=== PATIENT | female | born 1960 | race African-American/Black ===

== ENCOUNTER 2023-10-17 12:37 | Inpatient (IN) | payer OTHER ==
[~2023-10-17] VITALS: Ht 157.5 cm; Wt 48.2 kg
[~2023-10-17 12:37] MED LIST: MULT1CAP32 PO
[2023-10-17] MEDS ORDERED: IOHEXOL 350 MG/ML 100 ML VIAL ONE (13:13)
[2023-10-17] MEDS ORDERED: SODIUM CHLORIDE 0.9% 100 ML ONE (13:14)
[2023-10-17 13:23] LABS: BASOPHILS % (AUTO) 0.6 % (0.0-2.0); EOSINOPHILS % (AUTO) 0.8 % (1.0-6.0); HEMATOCRIT 33.2 % (36-46); HEMOGLOBIN 11.2 g/dL (12.0-16.0); LYMPHOCYTES # (AUTO) 1.6 K/uL (1.0-4.8); LYMPHOCYTES % (AUTO) 39.8 % (22.0-44.0); MEAN CORPUSCULAR HEMOGLOBIN 30.8 pg (26.0-34.0); MEAN CORPUSCULAR HGB CONC 33.8 G/dL (31.0-37.0); MEAN CORPUSCULAR VOLUME 91 fL (80-100); MONOCYTES # (AUTO) 0.3 K/uL (0.1-1.0); NEUTROPHILS % (AUTO) 50.8 % (40.0-70.0); PLATELET COUNT (AUTO) 224 K/uL (150-450); RED BLOOD CELL COUNT(AUTO) 3.65 MIL/uL (4.00-5.20); RED CELL DISTRIBUTION WIDTH 14.3 % (11.5-14.5)
[2023-10-17] MEDS ORDERED: ACETAMINOPHEN 325 MG TABLET PO PRN (13:30)
[2023-10-17] MEDS ORDERED: BISACODYL 10 MG RECTAL RECTAL SUPPOSITORY PR PRN (13:30)
[2023-10-17 13:40] LABS: ANION GAP 6 mmol/L (8-16); CALCIUM, TOTAL 9.4 mg/dL (8.8-10.5); CARBON DIOXIDE 31 mmol/L (22-29); CHLORIDE 104 mmol/L (98-107); CREATININE 0.97 mg/dL (0.60-1.30); GLOMERULAR FILTR. RATE CALC > 60 mL/min (>60); GLUCOSE,RANDOM 94 mg/dL (70-110); POTASSIUM 3.9 mmol/L (3.5-5.1); SODIUM SERUM 141 mmol/L (136-145); TROPONIN I-HIGH SENSITIVITY Less Than 4 ng/L (<51); UREA NITROGEN, BLOOD 21 mg/dL (7-18)
[2023-10-17 13:45] LABS: PROTHROMBIN TIME 10.9 SEC (9.4-11.6)
[2023-10-17 14:50] LABS: GLUCOMETER DEV NAME(LOC) ERT.5; GLUCOSE,POINT OF CARE 86 MG/DL (70-110)
[2023-10-17 14:52] LABS: ALANINE AMINOTRANSFERASE 23 U/L (12-78); ALKALINE PHOSPHATASE 79 U/L (46-116); ASPARTATE AMINOTRANSFERASE 24 U/L (15-37); BILIRUBIN,TOTAL 0.7 mg/dL (0.1-1.0); TOTAL PROTEIN, SERUM 7.8 g/dL (6.4-8.2)
[2023-10-17] MEDS: ASPIRIN 325 MG TABLET PO ONE ×2 (15:16→15:17)
[2023-10-17] MEDS: CLOPIDOGREL BISULFATE 300 MG TABLET PO ONE (15:17)
[2023-10-17 16:26] VITALS: BP 111/71; PULSE 62; RESP 16; TEMP 98.1
[2023-10-17 16:36] LABS: APPEARANCE,URINE CLEAR (CLEAR); BILIRUBIN,URINE NEGATIVE (NEGATIVE); COLOR,URINE LIGHT YELLOW (YELLOW); GLUCOSE, URINE (UA) NEGATIVE (NEGATIVE); KETONES,URINE NEGATIVE (NEGATIVE); LEUKOCYTE ESTERASE ,URINE NEGATIVE (NEGATIVE); NITRATE,URINE NEGATIVE (NEGATIVE); OCCULT BLOOD,URINE NEGATIVE (NEGATIVE); PH,URINE 7.5 (5.0-8.0); PH,URINE DRUG SCREEN 7.5 (5.0-8.0); PROTEIN,URINE TRACE mg/dL (NEGATIVE); UROBILINOGEN,URINE <=1.0 mg/dL (<=1.0)
[2023-10-17 16:42] LABS: SPECIFIC GRAVITIY, URINE > 1.050 (1.003-1.030)
[2023-10-17 16:45] LABS: ALCOHOL, URINE DRUG SCREEN NEGATIVE (NEGATIVE); AMPHET/METH SCREEN,URINE NEGATIVE (NEGATIVE); BARBITURATE SCREEN, URINE NEGATIVE (NEGATIVE); BENZODIAZEPINES SCREEN,URINE NEGATIVE (NEGATIVE); CANNABINOID SCREEN,URINE NEGATIVE (NEGATIVE); COCAINE SCREEN,URINE NEGATIVE (NEGATIVE); METHADONE SCREEN, URINE NEGATIVE (NEGATIVE); OPIATE SCREEN,URINE NEGATIVE (NEGATIVE); PHENCYCLIDINE SCREEN,URINE NEGATIVE (NEGATIVE)
[2023-10-17 16:56] LABS: BACTERIA,URINE None Seen /HPF (None Seen); RBC,URINE None Seen /HPF (0-2); WBC,URINE None Seen /HPF (0-5)
[2023-10-17 19:17] LABS: TROPONIN I-HIGH SENSITIVITY 4 ng/L (<51)
[2023-10-17 20:29] VITALS: BP 102/57; PULSE 71; RESP 18; TEMP 98.1
[2023-10-17] MEDS: CHLORHEXIDINE GLUCONATE 2% TOWELETTE [2'S/6'S] TP SCH (23:57)
[2023-10-17 23:58] VITALS: BP 104/61; PULSE 58; RESP 18; TEMP 97.7
[2023-10-18 01:23] LABS: TROPONIN I-HIGH SENSITIVITY 4 ng/L (<51)
[2023-10-18 04:26] VITALS: PULSE 100; RESP 18; TEMP 97.7
[2023-10-18 06:40] LABS: BASOPHILS % (AUTO) 0.6 % (0.0-2.0); EOSINOPHILS % (AUTO) 1.6 % (1.0-6.0); HEMOGLOBIN 10.8 g/dL (12.0-16.0); LYMPHOCYTES # (AUTO) 1.6 K/uL (1.0-4.8); LYMPHOCYTES % (AUTO) 42.6 % (22.0-44.0); MEAN CORPUSCULAR HEMOGLOBIN 30.7 pg (26.0-34.0); MEAN CORPUSCULAR HGB CONC 33.7 G/dL (31.0-37.0); MEAN CORPUSCULAR VOLUME 91 fL (80-100); MONOCYTES # (AUTO) 0.3 K/uL (0.1-1.0); MONOCYTES % (AUTO) 8.9 % (2.0-9.0); NEUTROPHILS # (AUTO) 1.8 K/uL (1.8-7.7); NEUTROPHILS % (AUTO) 46.3 % (40.0-70.0); PLATELET COUNT (AUTO) 209 K/uL (150-450); RED BLOOD CELL COUNT(AUTO) 3.51 MIL/uL (4.00-5.20); RED CELL DISTRIBUTION WIDTH 14.1 % (11.5-14.5); WHITE BLOOD COUNT (AUTO) 3.8 K/uL (4.5-11.0)
[2023-10-18 07:06] LABS: ANION GAP 7 mmol/L (8-16); CALCIUM, TOTAL 8.9 mg/dL (8.8-10.5); CARBON DIOXIDE 31 mmol/L (22-29); CHLORIDE 103 mmol/L (98-107); CREATININE 0.82 mg/dL (0.60-1.30); GLOMERULAR FILTR. RATE CALC > 60 mL/min (>60); GLUCOSE,RANDOM 91 mg/dL (70-110); POTASSIUM 3.8 mmol/L (3.5-5.1); SODIUM SERUM 141 mmol/L (136-145); UREA NITROGEN, BLOOD 14 mg/dL (7-18)
[2023-10-18 08:00] VITALS: BP 101/54; PULSE 75; RESP 16; TEMP 98.1
[2023-10-18] MEDS: PANTOPRAZOLE SODIUM 40 MG/VIAL IVP SCH (08:52)
[2023-10-18 11:35] VITALS: BP 128/75; PULSE 69; RESP 18; TEMP 97.9
[2023-10-18] MEDS: ATORVASTATIN CALCIUM 20 MG TABLET PO SCH (11:57)
[2023-10-18] MEDS: ASPIRIN 81 MG CHEWABLE TABLET PO SCH (11:58)
[2023-10-18 12:16] LABS: CHOL/HDL RATIO 2.9 (3.9-5.7); CHOLESTEROL 191 mg/dL (131-200); HDL CHOLESTEROL 65 mg/dL (40-60); LDL CHOL (CALC.) 115 mg/dL (0-130); TRIGLYCERIDES 55 mg/dL (15-150)
[2023-10-18 16:00] VITALS: BP 119/74; PULSE 73; RESP 18; TEMP 98.2
[2023-10-18 20:14] VITALS: BP 118/63; PULSE 68; RESP 18; TEMP 98
[2023-10-18 23:40] VITALS: BP 104/68; PULSE 61; RESP 18; TEMP 97.9
[2023-10-19 04:46] VITALS: BP 110/61; PULSE 55; RESP 18; TEMP 98.2
[2023-10-19 08:13] VITALS: BP 99/61; PULSE 59; RESP 19; TEMP 98.3
[2023-10-19] MEDS ORDERED: GADOTERATE MEGLUMINE 10 MMOL/20 ML VIAL IVP ONE (10:05)
[2023-10-19] MEDS ORDERED: ASPI81TA87 PO (10:28)
[2023-10-19] MEDS ORDERED: CLOP75TA60 PO (10:28)
[2023-10-19] MEDS ORDERED: ATOR20TA PO (10:29)
[2023-10-19 11:43] VITALS: BP 96/68; PULSE 66; RESP 20; TEMP 98.5
== END 2023-10-19 13:59 | disposition home or self-care (01) | DRG 47 ==
LOC: EMS 12:37 → EDH 13:21 → 5S 16:20
PROVIDERS: ADMIT Internal Medicine; ATTEND Internal Medicine
DX: G45.9 Transient cerebral ischemic attack, unspecified (principal); Z79.01 Long term (current) use of anticoagulants; Z79.899 Other long term (current) drug therapy; Z86.73 Personal history of transient ischemic attack (TIA), and cerebral infarction without residual deficits
CPT/HCPCS: 70496; 70498; 70551; 70553; 80048; 80053; 80061; 80307; 81001; 82948; 82962; 84484; 85025; 85610; 85730; 86850; 86900; 86901; 92610; 93005; 93306; 93880; 97116; 97162; 97165; 97535; 99285; C9113; J7050; Q9967